=== PATIENT | female | born 1955 | race African-American/Black ===

== ENCOUNTER 2022-03-21 15:05 | Inpatient (IN) | payer MEDICARE, OTHER ==
[~2022-03-21] VITALS: Ht 160 cm; Wt 81.2 kg
[2022-03-21] MEDS ORDERED: ONDANSETRON HCL 4MG/2ML INJ IV STA (15:37)
[2022-03-21] MEDS ORDERED: SODIUM CHLORIDE 0.9% 1,000 ML IV ONE (15:45)
[2022-03-21] MEDS ORDERED: ASPIRIN 81MG TABLET PO ONE (15:45)
[2022-03-21 16:17] LABS: BASOPHILS % 0.8 % (0.0-2.0); EOSINOPHILS % 0.3 % (0.0-5.0); HEMATOCRIT. 42.5 % (36.0-48.0); HEMOGLOBIN. 14.6 g/dL (12.0-16.0); LYMPHOCYTES % 20.6 % (20.0-50.0); MEAN CORPUSCULAR HEMOGLOBIN 30.7 pg (28.0-32.0); MEAN CORPUSCULAR VOLUME 89.8 fL (81.0-99.0); MONOCYTES % 7.1 % (2.0-8.0); NEUTROPHILS % 71.2 % (40.0-76.0); PLATELET 426 x1000/uL (130-400); RED BLOOD CELL COUNT 4.74 mill/uL (4.2-5.4); RED CELL DISTRIBUTION WIDTH 14.8 % (11.6-14.6)
[2022-03-21 16:23] LABS: CHLORIDE 103 mEq/L (98-107)
[2022-03-21 17:33] LABS: CHLORIDE 106 mEq/L (98-107)
[2022-03-21] MEDS ORDERED: ONDANSETRON HCL 4MG/2ML INJ IV ONE (19:00)
[2022-03-22] VITALS: BP 165/90
[2022-03-22] MEDS ORDERED: CITA10SO PO (00:45)
[2022-03-22] MEDS ORDERED: ZOLPIDEM TARTRATE 5MG TABLET PO PRN (01:45)
[2022-03-22] MEDS ORDERED: MORPHINE SULFATE 2 MG/ML CPJ (NOT FOR IM USE) IV PRN (01:45)
[2022-03-22] MEDS ORDERED: ONDANSETRON HCL 4MG/2ML INJ IV PRN (01:45)
[2022-03-22] MEDS ORDERED: ACETAMINOPHEN 325MG TABLET PO PRN (01:45)
[2022-03-22] MEDS ORDERED: CLONIDINE 0.1MG TABLET PO PRN (01:45)
[2022-03-22 04:00] VITALS: BP 158/64
[2022-03-22] MEDS ORDERED: PNEUMOCOCCAL 23-VAL P-SAC VAC 0.5 ML IM ONE (05:30)
[2022-03-22 07:05] LABS: BASOPHILS % 0.4 % (0.0-2.0); HEMATOCRIT. 37.1 % (36.0-48.0); HEMOGLOBIN. 12.6 g/dL (12.0-16.0); MEAN CORPUSCULAR HEMOGLOBIN 30.6 pg (28.0-32.0); MEAN CORPUSCULAR VOLUME 90.1 fL (81.0-99.0); MEAN PLATELET VOLUME 7.9 fl (7.4-10.4); MONOCYTES % 8.1 % (2.0-8.0); NEUTROPHILS % 74.5 % (40.0-76.0); PLATELET 332 x1000/uL (130-400); RED BLOOD CELL COUNT 4.11 mill/uL (4.2-5.4); RED CELL DISTRIBUTION WIDTH 14.9 % (11.6-14.6)
[2022-03-22 07:21] LABS: CHLORIDE 107 mEq/L (98-107)
[2022-03-22 08:00] VITALS: BP 117/70
[2022-03-22] MEDS ORDERED: AMLODIPINE 5MG TABLET PO SCH (09:00)
[2022-03-22] MEDS ORDERED: ASPIRIN 81MG TABLET PO SCH (09:00)
[2022-03-22 09:31] VITALS: BP 117/70
== END 2022-03-22 10:30 | disposition home or self-care (01) | DRG 305 ==
LOC: ER 15:05 → 7WST 20:19 → ENRESERV 21:56
PROVIDERS: ADMIT Hospitalist; ATTEND Hospitalist
DX: I16.9 Hypertensive crisis, unspecified (principal); R11.2 Nausea with vomiting, unspecified; E87.5 Hyperkalemia; E03.9 Hypothyroidism, unspecified; I10 Essential (primary) hypertension; F17.200 Nicotine dependence, unspecified, uncomplicated; Z88.6 Allergy status to analgesic agent
CPT/HCPCS: 36415; 71045; 80048; 80053; 83735; 83880; 84443; 84484; 85025; 85379; 90732; 93005; 93970; 99285; J2405; J7030